=== PATIENT | female | born 1970 | race African-American/Black ===

== ENCOUNTER 2017-12-05 15:43 | Inpatient (IN) | payer OTHER, MEDICAID ==
[~2017-12-05] VITALS: Ht 160 cm; Wt 76.3 kg
[~2017-12-05 15:43] MED LIST: CARI350T27 PO
[2017-12-05 20:01] LABS: CLARITY URINE CLOUDY (CLEAR); COLOR URINE YELLOW (YELLOW); KETONES URINE NEGATIVE (NEGATIVE); LEUKOCYTE ESTERASE URINE 2+ (NEGATIVE); NITRITE URINE NEGATIVE (NEGATIVE); OCCULT BLOOD URINE 1+ (NEGATIVE); PROTEIN URINE NEGATIVE (NEGATIVE); SPECIFIC GRAVITY URINE 1.011 (1.005-1.030); UROBILINOGEN URINE 0.2 E.U./dL (0.2-1.0)
[2017-12-05 20:18] LABS: CHLORIDE 111 mEq/L (98-107)
[2017-12-05 20:20] LABS: INR 1.1; PARTIAL THROMBOPLASTIN TIME 22.9 sec (23.4-31.0); PROTHROMBIN TIME 11.1 sec (9.4-11.6)
[2017-12-05 20:24] LABS: BASOPHILS % 0.4 % (0.0-2.0); EOSINOPHILS % 0.2 % (0.0-5.0); LYMPHOCYTES % 15.8 % (20.0-50.0); MEAN CORPUSCULAR HEMOGLOBIN 16.7 pg (28.0-32.0); MEAN CORPUSCULAR VOLUME 59.2 fL (81.0-99.0); MEAN PLATELET VOLUME 9.8 fl (7.4-10.4); MONOCYTES % 7.2 % (2.0-8.0); NEUTROPHILS % 76.4 % (40.0-76.0); PLATELET 144 x1000/uL (130-400); RED BLOOD CELL COUNT 1.77 mill/uL (4.2-5.4); RED CELL DISTRIBUTION WIDTH 20.2 % (11.6-14.6)
[2017-12-05 20:32] LABS: HEMATOCRIT. 10.4 % (36.0-48.0)
[2017-12-05 20:47] LABS: PLATELET ESTIMATE NORMAL
[2017-12-05] MEDS ORDERED: ASPIRIN 325MG TABLET PO ONE (23:00)
[2017-12-05 23:30] VITALS: BP 135/61
[2017-12-06] VITALS (29 sets, daily range): BP systolic 117–142; BP diastolic 41–91
[2017-12-06] MEDS ORDERED: FERR325T6 PO (00:12)
[2017-12-06] MEDS ORDERED: AMLO2.5T45 PO (00:12)
[2017-12-06 01:26] LABS: HEMATOCRIT 13.2 % (36.0-48.0)
[2017-12-06 08:09] LABS: HEMOGLOBIN 4.7 g/dL (12.0-16.0)
[2017-12-06] MEDS: DOCUSATE SODIUM 100MG CAPSULE PO SCH ×2 (10:00→18:13)
[2017-12-06 12:33] LABS: FERRITIN < 5 ng/mL (10-291)
[2017-12-06] MEDS: FERROUS SULFATE 325MG TABLET PO SCH ×2 (13:00→18:13)
[2017-12-06 14:09] LABS: VITAMIN B12 SERUM 428 pg/mL (211-911)
[2017-12-06 14:22] LABS: TOTAL IRON BINDING CAPACITY 437 ug/dL (250-450)
[2017-12-06 17:25] LABS: HEMATOCRIT 21.3 % (36.0-48.0)
[2017-12-07] VITALS (12 sets, daily range): BP systolic 117–138; BP diastolic 66–85
[2017-12-07 05:55] LABS: *AMPHETAMINES SCREEN URINE NEGATIVE (NEGATIVE); *BARBITURATES SCREEN URINE NEGATIVE (NEGATIVE); *BENZODIAZEPINES SCREEN URINE NEGATIVE (NEGATIVE)
[2017-12-07 05:56] LABS: *COCAINE SCREEN URINE NEGATIVE (NEGATIVE); CANNABINOID URINE SCREEN NEGATIVE (NEGATIVE); METHADONE URINE SCREEN NEGATIVE (NEGATIVE); OPIATES URINE SCREEN NEGATIVE (NEGATIVE); PHENCYCLIDINE URINE SCREEN NEGATIVE (NEGATIVE)
[2017-12-07 06:50] LABS: HEMATOCRIT 15.3 % (36.0-48.0)
[2017-12-07] MEDS: DOCUSATE SODIUM 100MG CAPSULE PO SCH (08:28)
[2017-12-07] MEDS: FERROUS SULFATE 325MG TABLET PO SCH (08:28)
[2017-12-07 09:36] LABS: HEMATOCRIT 27.7 % (36.0-48.0)
[2017-12-07 09:49] LABS: HEMOGLOBIN 9.1 g/dL (12.0-16.0)
== END 2017-12-07 11:30 | disposition home or self-care (01) | DRG 760 ==
LOC: ER 16:10 → 5EST 21:13 → EDBEDREQSVC 21:17 → ENRESERV 22:27 → EDBEDREQTM 23:30
PROVIDERS: ADMIT Internal Medicine; ATTEND Internal Medicine
PROC: 30233N1 Transfusion of Nonautologous Red Blood Cells into Peripheral Vein, Percutaneous Approach (ICD-10-PCS; principal; 2017-12-05)
DX: N92.0 Excessive and frequent menstruation with regular cycle (principal); N17.0 Acute kidney failure with tubular necrosis; E43 Unspecified severe protein-calorie malnutrition; E87.8 Other disorders of electrolyte and fluid balance, not elsewhere classified; I95.9 Hypotension, unspecified; D62 Acute posthemorrhagic anemia; D50.0 Iron deficiency anemia secondary to blood loss (chronic); N83.202 Unspecified ovarian cyst, left side; I10 Essential (primary) hypertension; Z81.8 Family history of other mental and behavioral disorders
CPT/HCPCS: 36415; 71045; 76830; 76856; 80053; 80305; 81003; 82607; 82728; 82746; 82962; 83036; 83540; 83550; 83735; 83880; 84484; 85014; 85018; 85025; 85610; 85730; 86850; 86900; 86920; 93005; 99291; J7050; P9016

== ENCOUNTER 2018-11-11 21:20 | Inpatient (IN) | payer OTHER, MEDICAID ==
[~2018-11-11] VITALS: Ht 160 cm; Wt 69.9 kg
[~2018-11-11 21:20] MED LIST changes: +AMLO2.5T45 PO; +FERR325T6 PO
[2018-11-11] MEDS ORDERED: SODIUM CHLORIDE 0.9% 1,000 ML IV ONE (22:19)
[2018-11-11] MEDS ORDERED: ONDANSETRON HCL 4MG/2ML INJ IV STA (22:19)
[2018-11-11 23:16] LABS: CHLORIDE 110 mEq/L (98-107)
[2018-11-11 23:18] LABS: PROTHROMBIN TIME 10.2 sec (9.1-11.1)
[2018-11-11 23:28] LABS: CLARITY URINE CLOUDY (CLEAR); KETONES URINE TRACE (NEGATIVE); LEUKOCYTE ESTERASE URINE 1+ (NEGATIVE); NITRITE URINE NEGATIVE (NEGATIVE); OCCULT BLOOD URINE 3+ (NEGATIVE); PROTEIN URINE 3+ (NEGATIVE); SPECIFIC GRAVITY URINE 1.016 (1.005-1.030)
[2018-11-11 23:32] LABS: COLOR URINE BLOODY (YELLOW)
[2018-11-12] VITALS (13 sets, daily range): BP systolic 111–148; BP diastolic 50–75
[2018-11-12 00:05] LABS: BASOPHILS % 0.7 % (0.0-2.0); MEAN CORPUSCULAR HEMOGLOBIN 18.3 pg (28.0-32.0); MEAN CORPUSCULAR VOLUME 62.3 fL (81.0-99.0); MEAN PLATELET VOLUME 10.7 fl (7.4-10.4); MONOCYTES % 5.4 % (2.0-8.0); NEUTROPHILS % 81.9 % (40.0-76.0); PLATELET 169 x1000/uL (130-400); RED BLOOD CELL COUNT 1.29 mill/uL (4.2-5.4); RED CELL DISTRIBUTION WIDTH 19.3 % (11.6-14.6)
[2018-11-12 00:26] LABS: HEMOGLOBIN. 2.4 g/dL (12.0-16.0)
[2018-11-12] MEDS ORDERED: CEFTRIAXONE 1 G PREMIX 50 ML IV ONE ×2 (00:30→06:05)
[2018-11-12 03:01] LABS: PLATELET ESTIMATE NORMAL
[2018-11-12] MEDS ORDERED: CLONIDINE 0.1MG TABLET PO PRN (08:00)
[2018-11-12] MEDS ORDERED: MAGNESIUM/ALUMINUM HYDROXIDE/SIMETHICONE 30ML UDC PO PRN (08:00)
[2018-11-12] MEDS ORDERED: GUAIFENESIN 200MG/10ML SUGAR FREE UDC PO PRN (08:00)
[2018-11-12] MEDS ORDERED: NA PHOS,M-B/NA PHOS,DI-BA ENEMA 118ML PR PRN (08:00)
[2018-11-12] MEDS ORDERED: DIPHENHYDRAMINE 50MG/ML VIAL IV PRN (08:00)
[2018-11-12] MEDS ORDERED: DOCUSATE SODIUM 100MG CAPSULE PO PRN (08:00)
[2018-11-12] MEDS ORDERED: ACETAMINOPHEN 325MG TABLET PO PRN (08:00)
[2018-11-12] MEDS ORDERED: IPRATROPIUM/ALBUTEROL 0.5-3(2.5)MG/3ML NEB INH PRN (08:00)
[2018-11-12] MEDS ORDERED: ACETAMINOPHEN 650MG SUPP PR PRN (08:00)
[2018-11-12] MEDS ORDERED: HYDROCODONE/ACETAMINOPHEN 5/325MG TABLET PO PRN (08:00)
[2018-11-12 08:30] LABS: BASOPHILS % 0.5 % (0.0-2.0); LYMPHOCYTES % 16.4 % (20.0-50.0); MEAN CORPUSCULAR HEMOGLOBIN 23.1 pg (28.0-32.0); MEAN CORPUSCULAR VOLUME 74.2 fL (81.0-99.0); MEAN PLATELET VOLUME 10.4 fl (7.4-10.4); NEUTROPHILS % 77.1 % (40.0-76.0); PLATELET 145 x1000/uL (130-400); RED CELL DISTRIBUTION WIDTH 25.2 % (11.6-14.6)
[2018-11-12 08:32] LABS: CHLORIDE 115 mEq/L (98-107)
[2018-11-12 08:42] LABS: HEMOGLOBIN. 5.3 g/dL (12.0-16.0)
[2018-11-12 08:43] LABS: HEMATOCRIT. 16.9 % (36.0-48.0)
[2018-11-12 09:54] LABS: RED BLOOD CELL COUNT 2.28 mill/uL (4.2-5.4)
[2018-11-12 12:51] LABS: TOTAL IRON BINDING CAPACITY 407 ug/dL (250-450)
[2018-11-12] MEDS ORDERED: SODIUM CHLORIDE 0.9% INJ 3ML FLUSH IVF SCH (14:00)
[2018-11-12 22:08] LABS: HEMATOCRIT 23.1 % (36.0-48.0); HEMOGLOBIN 7.6 g/dL (12.0-16.0)
[2018-11-12 22:15] LABS: PROTHROMBIN TIME 10.2 sec (9.1-11.1)
[2018-11-13] VITALS (11 sets, daily range): BP systolic 110–147; BP diastolic 49–85
[2018-11-13 07:46] LABS: HEMATOCRIT. 22.2 % (36.0-48.0); HEMOGLOBIN. 7.1 g/dL (12.0-16.0); MEAN CORPUSCULAR HEMOGLOBIN 24.6 pg (28.0-32.0); MEAN CORPUSCULAR VOLUME 76.5 fL (81.0-99.0); MEAN PLATELET VOLUME 10.5 fl (7.4-10.4); PLATELET 125 x1000/uL (130-400); RED CELL DISTRIBUTION WIDTH 22.3 % (11.6-14.6)
[2018-11-13 07:53] LABS: CHLORIDE 112 mEq/L (98-107)
[2018-11-13 08:03] LABS: LDL CHOLESTEROL 42 mg/dL (5-100)
[2018-11-13 08:07] LABS: HDL CHOLESTEROL 38 mg/dL (40-59)
[2018-11-13] MEDS ORDERED: CEFAZOLIN SODIUM 1000MG/VIAL ONE (10:00)
[2018-11-13] MEDS ORDERED: SODIUM CHLORIDE 0.9% 10ML VIAL ONE (10:00)
[2018-11-13] MEDS ORDERED: MIDAZOLAM HCL 2 MG/2 ML VIAL ONE (10:03)
[2018-11-13] MEDS ORDERED: FENTANYL CITRATE/PF 50MCG/ML 2ML VIAL ONE (10:07)
[2018-11-13] MEDS ORDERED: ESMOLOL HCL 10MG/ML 10ML VIAL IV ONE (10:08)
[2018-11-13] MEDS ORDERED: PROPOFOL 200MG/20ML VIAL IV ONE (10:10)
[2018-11-13] MEDS ORDERED: ONDANSETRON HCL 4MG/2ML INJ ONE (10:18)
[2018-11-13] MEDS ORDERED: HYDROMORPHONE HCL/PF 2MG/ML CPJ IV PRN (11:15)
[2018-11-13] MEDS ORDERED: IBUPROFEN 600MG TABLET PO PRN (11:30)
[2018-11-13] MEDS ORDERED: ONDANSETRON HCL 4MG/2ML INJ IV PRN (11:30)
[2018-11-13] MEDS ORDERED: KETOROLAC 60MG/2ML VIAL IM NR (12:00)
[2018-11-13 16:04] LABS: PLATELET ESTIMATE NORMAL
== END 2018-11-13 18:55 | disposition home or self-care (01) | DRG 744 ==
LOC: ER 22:27 → 5EST 11-12 02:52 → EDBEDREQDT 11-12 02:54 → EDBEDREQSVC 11-12 02:54 → EDBEDREQ 11-12 02:54 → EDBEDREQTM 11-12 02:54 → ENRESERV 11-12 09:40
PROVIDERS: ADMIT Family Medicine; ATTEND Family Medicine
PROC: 30233N1 Transfusion of Nonautologous Red Blood Cells into Peripheral Vein, Percutaneous Approach (ICD-10-PCS; 2018-11-12)
PROC: 0UDB7ZZ Extraction of Endometrium, Via Natural or Artificial Opening (ICD-10-PCS; principal; 2018-11-13)
DX: N92.1 Excessive and frequent menstruation with irregular cycle (principal); D62 Acute posthemorrhagic anemia; I10 Essential (primary) hypertension; F79 Unspecified intellectual disabilities; Z98.891 History of uterine scar from previous surgery
CPT/HCPCS: 36415; 76856; 80061; 82607; 82746; 83540; 83550; 84484; 85014; 85018; 85049; 85384; 86850; 86900; 86920; 88305; 93005; 96374; 99285; J0690; J0696; J1885; J2250; J2405; J2704; J3010; J3490; J7030; J7050; P9016